=== PATIENT | male | born 1955 | race Caucasian/White ===

== ENCOUNTER 2016-05-18 11:46 | Emergency (ER) | payer OTHER ==
[2016-05-18] MEDS ORDERED: DIPH,PERTUS(ACELL)TETVAC-LF 0.5 ML VIAL IM ONE (12:39)
--- NOTE | 2016-05-18 12:43 | ED ---
Wound/Laceration HPI - General Chief Complaint: Wound/Laceration Stated Complaint: laceration [facility] Time Seen by Provider: 05/18/16 12:31 Source: patient Mode of arrival: ambulatory Limitations: no limitations - History of Present Illness Initial Comments: 52-year-old male patient presents to emergency department today for evaluation of a laceration to his left anterior thigh. Patient sustained this injury while at work. Patient was cutting brush with a chain saw when the chainsaw kicked back and hit his leg. Patient denies any significant blood loss. Denies any other injuries. Patient denies any numbness or tingling to the left lower extremity. Patient does not know when his last tetanus shot was. Patient denies any chest pain, back pain, shortness of breath, weakness, dizziness, abdominal pain, nausea, vomiting, diarrhea, constipation, hematuria, dysuria, urgency or frequency of urination. - Related Data Previous Rx's Medication Instructions Recorded Cephalexin [Keflex] 500 mg PO Q6HR #40 cap 05/18/16 Allergies Allergy/AdvReac Type Severity Reaction Status Date / Time No Known Allergies Allergy Verified 05/18/16 12:24 Review of Systems ROS Statement: Those systems with pertinent positive or pertinent negative responses have been documented in the HPI. ROS Other: All systems not noted in ROS Statement are negative. Past Medical History Past Medical History: No Reported History History of Any Multi-Drug Resistant Organisms: None Reported Past Surgical History: Appendectomy Past Psychological History: No Psychological Hx Reported Smoking Status: Former smoker Past Alcohol Use History: Occasional Past Drug Use History: None Reported General Exam Limitations: no limitations General appearance: alert, in no apparent distress Head exam: Present: atraumatic, normocephalic, normal inspection Eye exam: Present: normal appearance, PERRL, EOMI. Absent: scleral icterus, conjunctival injection, periorbital swelling ENT exam: Present: normal exam, mucous membranes moist Neck exam: Present: normal inspection. Absent: tenderness, meningismus, lymphadenopathy Respiratory exam: Present: normal lung sounds bilaterally. Absent: respiratory distress, wheezes, rales, rhonchi, stridor Cardiovascular Exam: Present: regular rate, normal rhythm, normal heart sounds. Absent: systolic murmur, diastolic murmur, rubs, gallop, clicks GI/Abdominal exam: Present: soft, normal bowel sounds. Absent: distended, tenderness, guarding, rebound, rigid Extremities exam: Present: normal inspection (5 cm laceration noted to left anterior thigh, Subcutaneous fat visible ), full ROM, normal capillary refill, other (Skin pink, warm, and dry. Pedal pulse present and 2+.). Absent: tenderness, pedal edema Back exam: Present: normal inspection Neurological exam: Present: alert, oriented X3, CN II-XII intact Psychiatric exam: Present: normal affect, normal mood Skin exam: Present: warm, dry, intact, normal color. Absent: rash Course Vital Signs 05/18/16 12:04 Temperature 97.8 F Pulse Rate 71 Respiratory 16 Rate Blood Pressure 145/72 O2 Sat by Pulse 97 Oximetry Procedures - Laceration Laceration #1 Consent Obtained: verbal consent Time Out Performed: Yes Indication: laceration Site: lower extremity Size (cm): 5 Description: linear Depth: simple, single layer Anesthetic Used: lidocaine 1% Anesthesia Technique: local infiltration Amount (mls): 12 Pre-repair: wound explored, irrigated extensively Type of Sutures: nylon Size of Sutures: 4-0 Number of Sutures: 11 Technique: simple, interrupted Patient Tolerated Procedure: no complications Additional Comments: applied bacitracin ointment Medical Decision Making - Medical Decision Making 52-year-old male presented for left leg laceration. Patient's was thoroughly cleaned out, closed using sutures. Patient's tetanus was updated at this time. Patient be discharged with close follow-up return parameters were discussed including signs and symptoms of infection. Disposition Clinical Impression: Laceration of left leg Disposition: HOME SELF-CARE Condition: Stable Instructions: Care For Your Stitches (ED), Laceration (ED) Additional Instructions: Wash the wound twice daily with soap and water. Keep the wound clean. Have sutures removed in 10 days.Please return to the Emergency Department if symptoms worsen or any other concerns. Prescriptions: Cephalexin [Keflex] 500 mg PO Q6HR #40 cap Referrals: None,Stated [Primary Care Provider] - 1-2 days Time of Disposition: 13:23 Decision to Admit Reason: Admit from EC
[2016-05-18 13:41] VITALS: BP 136/88; PULSE 78; RESP 18; TEMP 98.1
== END 2016-05-18 13:30 | disposition home or self-care (01) ==
LOC: EC 11:46
DX: S71.112A Laceration without foreign body, left thigh, initial encounter (principal); Z23 Encounter for immunization; Z87.891 Personal history of nicotine dependence; W29.3XXA Contact with powered garden and outdoor hand tools and machinery, initial encounter; Y93.89 Activity, other specified; Y99.0 Civilian activity done for income or pay; Y92.69 Other specified industrial and construction area as the place of occurrence of the external cause
CPT/HCPCS: 12002; 90471; 90715; 99282